=== PATIENT | female | born 1985 | race Caucasian/White ===

== ENCOUNTER 2019-01-21 11:28 | Emergency (ER) | payer OTHER ==
[~2019-01-21] VITALS: Ht 160 cm; Wt 87.9 kg
[~2019-01-21 11:28] MED LIST: FERR27TA; PREN1TAB49
[2019-01-21 11:49] VITALS: BP 118/69; PULSE 75; RESP 14; Ht 160 cm; Wt 87.9 kg
[2019-01-21] MEDS ORDERED: ACETAMINOPHEN 500 MG TAB PO STA (12:24)
[2019-01-21] MEDS ORDERED: AMOXICILLIN 500 MG CAP PO ONE (12:30)
[2019-01-21] MEDS ORDERED: AMOX500C2 PO (12:32)
[2019-01-21] MEDS ORDERED: ACET500C5 PO (12:33)
--- NOTE | 2019-01-21 12:35 | ERD ---
ER Documentation Chief Complaint Chief Complaint Pt with tooth pain [facility] todd, pt 8 weeks . HPI 33-year-old female presents with left lower dental pain since this morning. She is approximately 8 weeks by dates. She denies pelvic pain, vaginal bleeding. She is pending her first care appointment next week. She denies chest pain, shortness of breath or fevers. ROS All systems reviewed and are negative except as per history of present illness. Medications Home Meds Active Scripts Acetaminophen* (Tylophen*) 500 Mg Capsule, 1 CAP PO Q6H PRN for PAIN AND OR ELEVATED TEMP, #20 CAP Prov:ROGELIO SHEPHERD MD 01/21/19 Amoxicillin* (Amoxicillin*) 500 Mg Cap, 500 MG PO TID for 10 Days, CAP Prov:ROGELIO SHEPHERD MD 01/21/19 Reported Medications Ferrous Sulfate (Iron) 1 Tab Tablet 08/07/10 Vits W-Ca,Fe,Fa(<1MG) () 1 Tab Tablet 08/07/10 Vits W-Ca,Fe,Fa(<1MG) () 1 Tab Tablet 08/07/10 Allergies Allergies: Coded Allergies: No Known Allergy (Verified Allergy, Unknown, 01/28/09) Uncoded Allergies: NOT KNOW ALLERGIES (Allergy, Unknown, 08/07/10) PMhx/Soc Medical and Surgical Hx: pt denies Surgical Hx Smoking Status: Never smoker Physical Exam Vitals Vital Signs Date Temp Pulse Resp B/P (MAP) Pulse Ox O2 O2 Flow FiO2 Time Delivery Rate 01/21/19 98.4 75 14 118/69 100 11:49 (85) Physical Exam Const: No acute distress Head: Atraumatic Eyes: Normal Conjunctiva ENT: Normal External Ears, Nose and Mouth. Few caries in the left lower molar area. No erythema or facial swelling. Airway patent. No appreciable abscess or significant swelling. Neck: Full range of motion. No meningismus. Resp: Clear to auscultation bilaterally Cardio: Regular rate and rhythm, no murmurs Abd: Soft, non tender, non distended. Normal bowel sounds Skin: No petechiae or rashes Back: No midline or flank tenderness Ext: No cyanosis, or edema Neur: Awake and alert Psych: Normal Mood and Affect Results 24 hrs Current Medications Medications Dose Sig/Alicia Start Time Status Last (Trade) Ordered Route PRN Stop Time Admin Dose Reason Admin 500 mg ONCE STAT 01/21/19 DC Acetaminophen PO 12:24 (Tylenol 01/21/19 12:26 Tab) Amoxicillin 500 mg ONCE ONCE 01/21/19 DC PO 12:30 (Amoxicillin) 01/21/19 12:31 Procedures/MDM Patient presents with left lower dental pain since this morning. We will treat empirically with amoxicillin and Tylenol. She has no current signs of airway obstruction, abscess, sepsis, complications of , endocarditis, pericarditis, additional concerning signs or symptoms. She will be discharged home with a prescription of amoxicillin, Tylenol, recommendations for continued care, dental follow-up and return precautions for fevers, vomiting, shortness breath, vaginal bleeding, chest pain, new worsening symptoms. The patient was stable with no new complaints during the ER course. Clinically, there is no current evidence to suggest meningitis, sepsis, acute abdomen, pneumonia, stroke, acute coronary syndrome, pulmonary embolism, aortic dissection or any other emergent condition appearing to require further evaluation or hospitalization. Patient counseled regarding my diagnostic impression and care plan. Prior to discharge all questions answered. Pt agrees with treatment plan and understands strict return precautions. Pt is instructed to follow up with primary care provider within 24-48 hours. Precautionary instructions provided including instructions to return to the ER if not improving or for any worsening or changing symptoms or concerns. Disclaimer: Inadvertent spelling and grammatical errors are likely due to EHR/dictation software use and do not reflect on the overall quality of patient care. Also, please note that the electronic time recorded on this note does not necessarily reflect the actual time of the patient encounter. Departure Diagnosis: Primary Impression: Toothache Condition: Stable Patient Instructions: Dental Pain Referrals: DOCTOR,NOT ON STAFF (PCP) Additional Instructions: See dentist for follow-up. Recheck otherwise for new worsening symptoms. See RESULTS ENGINEER for care as scheduled. ROGELIO SHEPHERD MD Jan 21, 2019 12:35
== END 2019-01-21 12:43 | disposition home or self-care (01) ==
LOC: FTE 11:28
DX: O99.611 Diseases of the digestive system complicating pregnancy, first trimester (principal); K08.89 Other specified disorders of teeth and supporting structures; Z3A.00 Weeks of gestation of pregnancy not specified
CPT/HCPCS: Z7502; Z7610; 99283